=== PATIENT | female | born 1985 | race Caucasian/White ===

== ENCOUNTER → 2021-05-21 | Outpatient (CLI) | payer OTHER | LOC: MC.RAD 10:52 | DX: N63.20 Unspecified lump in the left breast, unspecified quadrant (principal); Z98.890 Other specified postprocedural states; Z98.82 Breast implant status ==

== ENCOUNTER 2021-11-15 10:36 | Outpatient (RCR) | payer OTHER | END 2021-11-22 | LOC: WSOH | DX: S61.411A Laceration without foreign body of right hand, initial encounter (principal); Y99.0 Civilian activity done for income or pay ==

== ENCOUNTER 2022-08-18 14:39 | Emergency (ER) | payer OTHER ==
[~2022-08-18] VITALS: Ht 160 cm; Wt 70.5 kg
[~2022-08-18 14:39] MED LIST: CEPHALEXIN500 M1 PO
[2022-08-18 15:15] VITALS: TEMP 97.6
[2022-08-18 17:27] LABS: BASO % 0.3 % (0.0-2.0); EOS # 0.2 K/mm3 (0.0-0.7); EOS % 1.7 % (0.0-4.0); GRAN # 10.4 K/mm3 (1.4-6.5); GRAN % 73.3 % (42.2-75.2); HEMOGLOBIN 13.1 g/dl (12.5-16.0); LYMPH # 2.7 K/mm3 (1.2-3.4); LYMPH % 19.2 % (20.0-51.0); MEAN CELL VOLUME 84 fl (80.0-100.0); MEAN CORPUSCULAR HEMOGLOBIN 28 pg (27-31); MEAN CORPUSCULAR HGB CONC 34 g/dl (33.0-37.0); MEAN PLATELET VOLUME 10.6 fl (7.4-10.4); MONO # 0.7 K/mm3 (0.1-0.6); MONO % 5.2 % (1.7-9.3); PLATELET COUNT 268 K/mm3 (130-400); RED BLOOD COUNT 4.62 M/mm3 (4.10-5.30); REDCELL DISTRIBUTION WIDTH-CV 13.1 % (11.5-14.5)
[2022-08-18 17:38] LABS: BILIRUBIN,TOTAL 0.5 mg/dL (0.2-1.2); CREATININE, serum 0.72 mg/dL (0.57-1.11); POTASSIUM 3.6 mmol/L (3.5-4.5); TOTAL PROTEIN 7.5 gm/dL (6.2-8.1)
[2022-08-18 18:31] LABS: COLLECTION METHOD CLEAN CATCH
[2022-08-18 18:39] LABS: URINE APPEARANCE Turbid (CLEAR/HAZY); URINE COLOR OTHER (YELLOW)
[2022-08-18 18:40] LABS: URINE PROTEIN(semi-quant) 2+ (NEGATIVE)
[2022-08-18 18:41] LABS: URINE BLOOD 3+ (NEGATIVE); URINE GLUCOSE Negative (NEGATIVE); URINE KETONE 1+ (NEGATIVE); URINE NITRATE Positive (NEGATIVE)
[2022-08-18 18:52] LABS: MUCOUS Present (NOT PRESENT); SQUAMOUS EPITHELIAL None Seen /hpf (0-10); URINE BACTERIA None Seen /hpf (NONE SEEN); URINE RBC >50 /hpf (0-2)
[2022-08-18] MEDS ORDERED: PERCOCET 325 MG1 TA2 PO ×3 (19:26→20:34)
[2022-08-18 19:52] VITALS: BP 120/79; PULSE 65
== END 2022-08-18 16:07 | disposition home or self-care (01) ==
LOC: COL.ER 14:39
PROVIDERS: Nurse Practitioner
DX: O03.9 Complete or unspecified spontaneous abortion without complication (principal)
CPT/HCPCS: J1885; J2405; J3010; J7030